=== PATIENT | female | born 1975 | race Caucasian/White ===

== ENCOUNTER → 2017-02-04 | Day surgery (SDC) | payer OTHER ==
[~2017-02-04] VITALS: Ht 160 cm; Wt 119.7 kg
[~2017-02-04] MED LIST: ALBUTEROL SULFATE 2.5 MG/0.5 ML INH NEB SOLN As Ordered ONE; ALBUTEROL SULFATE 2.5 MG/0.5 ML INH NEB SOLN INH ONE; EPIP0.3I2 IJ; FLUT1LOT EX; FLUT1POW2; LIDOCAINE 2% INJ 100 MG/5 ML SDV (FOR ANES.) As Ordered ONE; LR 1,000 ML IV SCH; MIDAZOLAM INJ 2 MG/2 ML VIAL (J2250) As Ordered ONE; ONDANSETRON 4MG/2ML VIAL (J2405) As Ordered ONE; ONDANSETRON 4MG/2ML VIAL (J2405) IV PRN; PERCOCET 5MG/325MG TAB PO PRN; PROA1AER INH; ROCURONIUM BROMIDE 50 MG/5 ML VIAL As Ordered ONE; SILVER NITRATE APPLICATOR EXT ONE; SING10TA32 PO; ZYRT10TA2 PO; fentaNYL 100 MCG/2 ML INJECTION (J3010) As Ordered ONE; fentaNYL 100 MCG/2 ML INJECTION (J3010) IV PRN
[2017-02-04] MEDS: LR 1,000 ML IV SCH ×3 (07:00→08:45)
[2017-02-04 07:04] LABS: CONTROL LINE HCG INT CTR LINE PRESENT
[2017-02-04 11:05] VITALS: BP 119/70
--- NOTE | 2017-02-05 09:42 | RO ---
DATE OF PROCEDURE: 02/04/2017 PREPROCEDURE DIAGNOSES: Benign endometrial hyperplasia with abnormal uterine bleeding. POSTPROCEDURE DIAGNOSES: Benign endometrial hyperplasia with abnormal uterine bleeding. SURGEON: Jodie Tom MD BLANKET CUTTER HAND: None. ANESTHESIA: General endotracheal anesthesia. INDICATION FOR OPERATION: Carly is a 41-year-old female with abnormal uterine bleeding and found to have benign endometrial hyperplasia on an endometrial biopsy performed in the clinic, needing further tissue sampling and treatment with Mirena intrauterine device. MATERIAL FORWARDED FOR LAB FOR EXAMINATION: Endometrial curettings. DESCRIPTION OF FINDINGS: Uterus sounded to 10 cm. On diagnostic hysteroscopy, the uterine cavity appeared normal. There was fluffy, healthy appearing tissue, no discrete lesions noted. INFECTION CLASSIFICATION: II. ESTIMATED BLOOD LOSS: 10 mL. IV FLUIDS: 500 mL of lactated Ringer's. No catheterization was performed for urine output. OPERATION PERFORMED: Diagnostic hysteroscopy with dilatation and curettage and placement of Mirena IUD. DESCRIPTION OF PROCEDURE: After obtaining informed consent, Carly was taken to the operating room where she underwent general endotracheal anesthesia. She was placed in low lithotomy position and the perineum and vagina were prepped and draped in a sterile fashion. Notably, she had a desaturation down to 85, which required giving her albuterol via her endotracheal tube, which corrected her desaturation and then she began saturating normally. She has asthma and had reported that it was well controlled prior to the procedure. Speculum was inserted into the vagina and the anterior segment of the cervix was grasped with a single-toothed tenaculum. Uterus sounded to 10 cm. Cervix was sequentially dilated with Hanks dilators. Hysteroscopic camera was introduced to the fundus of the uterus where the endometrial cavity was noted to be normal in appearance with normal appearing tissue. No discrete lesions. The camera was removed after taking pictures and sharp curette was introduced into the uterus and used to scrape the endometrial lining with good tissue sampling 360 degrees and a moderate amount of tissue was retrieved. At that point, Mirena IUD was then inserted in routine fashion. The strings were cut to approximately 4 cm in length. The strings were tucked up next to the cervix. The tenaculum was removed with continued oozing at the tenaculum insertion sites. The right side had hemostasis achieved with silver nitrate, but the left side tenaculum site continued to bleed so 1 figure of eight suture was placed using #2-0 Vicryl with complete hemostasis noted at that tenaculum site. The bivalve speculum was removed, and the patient was awakened from anesthesia and transferred to the recovery room in good condition. All counts were correct times two at the end of the procedure. SILVIA
== END | disposition home or self-care (01) ==
LOC: M SDC 06:10
PROVIDERS: ATTEND Obstetrics & Gynecology
DX: N92.0 Excessive and frequent menstruation with regular cycle (principal); N85.01 Benign endometrial hyperplasia; Z30.40 Encounter for surveillance of contraceptives, unspecified; Z88.0 Allergy status to penicillin; Z79.899 Other long term (current) drug therapy; J45.909 Unspecified asthma, uncomplicated
CPT/HCPCS: 36415; 58300; 58558; 84703; 85014; 85018; 86850; 86900; 86901; 88305; J2250; J2405; J3010

== ENCOUNTER 2017-10-15 07:30 | Inpatient (IN) | payer OTHER ==
[~2017-10-15] VITALS: Ht 160 cm; Wt 124.7 kg
[~2017-10-15 07:30] MED LIST changes: -ALBUTEROL SULFATE 2.5 MG/0.5 ML INH NEB SOLN As Ordered ONE; -ALBUTEROL SULFATE 2.5 MG/0.5 ML INH NEB SOLN INH ONE; -LIDOCAINE 2% INJ 100 MG/5 ML SDV (FOR ANES.) As Ordered ONE; -LR 1,000 ML IV SCH; -MIDAZOLAM INJ 2 MG/2 ML VIAL (J2250) As Ordered ONE; -ONDANSETRON 4MG/2ML VIAL (J2405) As Ordered ONE; -ONDANSETRON 4MG/2ML VIAL (J2405) IV PRN; -PERCOCET 5MG/325MG TAB PO PRN; -PROA1AER INH; +PROAAER10 INH; -ROCURONIUM BROMIDE 50 MG/5 ML VIAL As Ordered ONE; -SILVER NITRATE APPLICATOR EXT ONE; -fentaNYL 100 MCG/2 ML INJECTION (J3010) As Ordered ONE; -fentaNYL 100 MCG/2 ML INJECTION (J3010) IV PRN
[2017-10-18] MEDS ORDERED: FLUT44IN INH (14:34)
[2017-10-18] MEDS ORDERED: VALT500T PO (14:34)
[2017-10-18] MEDS ORDERED: OLOP1OPD OU (14:34)
[2017-10-30] MEDS ORDERED: CLINDAMYCIN 900 MG in APPROPRIATE DILUENT 1 EA IV ONE (07:15)
[2017-10-30] MEDS ORDERED: GENTAMICIN 190 MG in D5W 50 ML IV ONE (07:15)
[2017-10-30] MEDS ORDERED: LR 1,000 ML IV ONE (07:15)
[2017-10-30 07:36] LABS: MEAN CORPUSCULAR HEMOGLOBIN 28.5 pg (27.0-33.0); MEAN CORPUSCULAR HGB CONC 33.3 g/dl (32.0-36.5); MEAN CORPUSCULAR VOLUME 85.6 fl (80.0-96.0); PLATELET COUNT, AUTOMATED 281 10^3/uL (150-450); RED CELL DISTRIBUTION WIDTH 13.8 % (11.5-14.5); WHITE BLOOD COUNT 8.2 10^3/uL (4.0-10.0)
[2017-10-30 07:50] LABS: CONTROL LINE HCG INT CTR LINE PRESENT
[2017-10-30 07:52] LABS: ANION GAP 5 MEQ/L (8-16); BLOOD UREA NITROGEN 13 MG/DL (7-18); CALCIUM LEVEL 8.7 MG/DL (8.5-10.1); CARBON DIOXIDE LEVEL 31 MEQ/L (21-32); CHLORIDE LEVEL 103 MEQ/L (98-107); CREATININE FOR GFR 0.94 MG/DL (0.55-1.02); GLOMERULAR FILTRATION RATE > 60.0 (>58); GLUCOSE, FASTING 100 MG/DL (70-105); POTASSIUM SERUM 4.7 MEQ/L (3.5-5.1); SODIUM LEVEL 139 MEQ/L (136-145)
[2017-10-30] MEDS ORDERED: ALBUTEROL SULFATE 2.5 MG/0.5 ML INH NEB SOLN As Ordered ONE (08:03)
[2017-10-30] MEDS ORDERED: ALBUTEROL SULFATE 2.5 MG/0.5 ML INH NEB SOLN INH ONE (08:15)
[2017-10-30] MEDS ORDERED: PROPOFOL 200 MG/20 ML VIAL As Ordered ONE ×3 (08:26→12:51)
[2017-10-30] MEDS ORDERED: dexameTHASONE 4 MG/ML 1ML VIAL (J1100) As Ordered ONE (08:26)
[2017-10-30] MEDS ORDERED: fentaNYL 250 MCG/5 ML INJECTION (J3010) As Ordered ONE (08:26)
[2017-10-30] MEDS ORDERED: LIDOCAINE 2% INJ 100 MG/5 ML SDV (FOR ANES.) As Ordered ONE (08:26)
[2017-10-30] MEDS ORDERED: ROCURONIUM BROMIDE 50 MG/5 ML VIAL As Ordered ONE ×2 (08:26→10:01)
[2017-10-30] MEDS ORDERED: MIDAZOLAM INJ 2 MG/2 ML VIAL (J2250) As Ordered ONE (08:28)
[2017-10-30 08:30] LABS: MICROSCOPIC INDICATED? MAN YES (NO)
[2017-10-30] MEDS ORDERED: BUPIVACAINE HCL 0.25% 30 ML VIAL As Ordered ONE (08:31)
[2017-10-30 08:43] LABS: BACTERIA, URINE MOD AMOUNT; HYALINE CAST, URINE NONE SEEN /lpf (0-1); MICROSCOPIC EXAM PERFORMED; SQUAMOUS EPITHELIAL CELL URINE MOD AMOUNT /hpf (SMALL AMT); WBC, URINE 15-20 /hpf (0-3)
[2017-10-30] MEDS ORDERED: PHENYLephrine HCL 500 MCG/5 ML (100MCG/ML) SYRINGE (J2370) As Ordered ONE (09:16)
[2017-10-30] MEDS ORDERED: ePHEDrine SULFATE 25 MG/5 ML(5MG/ML) SYRINGE As Ordered ONE (09:16)
[2017-10-30] MEDS ORDERED: GLYCOPYRROLATE INJ 0.2 MG/ML 2 ML VIAL As Ordered ONE (10:15)
[2017-10-30] MEDS ORDERED: HYDROmorphone HCL 2 MG/ML 1ML VIAL (J1170) As Ordered ONE (10:15)
[2017-10-30] MEDS ORDERED: KETOROLAC 60 MG/2 ML VIAL (J1885) As Ordered ONE (10:15)
[2017-10-30] MEDS ORDERED: NEOSTIGMINE 10 MG/10 ML VIAL (J2710) As Ordered ONE (10:15)
[2017-10-30] MEDS ORDERED: LIDOCAINE W/EPINEPHRINE 1% 20ML VIAL As Ordered ONE (10:59)
[2017-10-30] MEDS ORDERED: ESMOLOL INJ 100MG/10ML VIAL As Ordered ONE (11:25)
[2017-10-30] MEDS ORDERED: METHYLENE BLUE 0.5% (5MG/ML) 10 ML AMP (PROVAYBLUE)(Q9968 PER 1MG) As Ordered ONE (12:05)
[2017-10-30] MEDS ORDERED: PERCOCET 5MG/325MG TAB PO PRN (13:45)
[2017-10-30] MEDS ORDERED: PROMETHAZINE INJ 25 MG/ML VIAL (J2550) IV PRN (13:45)
[2017-10-30] MEDS ORDERED: NALOXONE INJ 0.4 MG/1 ML VIAL (J2310) As Ordered ONE (14:05)
[2017-10-30] MEDS ORDERED: HYDROmorphone HCL 1 MG/ML SYRINGE (J1170) As Ordered ONE (14:08)
[2017-10-30] MEDS ORDERED: ONDANSETRON 4MG/2ML VIAL (J2405) As Ordered ONE (14:08)
[2017-10-30] MEDS: HYDROmorphone HCL 1 MG/ML SYRINGE (J1170) IV PRN ×5 (14:15→14:35)
[2017-10-30] MEDS: PERCOCET 5MG/325MG TAB PO PRN ×3 (14:15→21:51)
[2017-10-30] MEDS ORDERED: fentaNYL 100 MCG/2 ML INJECTION (J3010) IV PRN (14:45)
[2017-10-30] MEDS ORDERED: LR 1,000 ML IV SCH (14:45)
[2017-10-30] MEDS ORDERED: ONDANSETRON 4MG/2ML VIAL (J2405) IV PRN (14:45)
[2017-10-30 15:30] VITALS: BP 146/75
[2017-10-30 16:00] VITALS: BP 132/77
[2017-10-30 17:00] VITALS: BP 122/76
[2017-10-30] MEDS: LR 1,000 ML IV SCH (17:47)
[2017-10-30 18:00] VITALS: BP 135/77
[2017-10-30 19:00] VITALS: BP 167/83
--- NOTE | 2017-10-30 19:59 | IPNPDOC ---
Text Note Date of Service The patient was seen on 10/30/17. NOTE POD 0 Carly Peña is a 41yo on POD 0 s/p uncomplicated LAVH with bilateral salpingectomy and cystoscopy. She has done well this afternoon. Has ambulated, voided spontaneously. She endorses her only pain is in her biceps. She is able to lift her arms, but not without pain. No f/c/n/v/CP/SOB. Vitals wnl, afebrile General: WDWN, obese, resting in bed Abdomen: soft, non-tender, non-distended. Laparoscopic port sites x4 intact with no erythema/induration/drainage with dermabond overlying Extremities: SCDs in place, no pain with palpation of calves. Able to lift arms but not without pain Labs: pre-op H/H 13.8/41.5 Assessment: Carly Peña is a 41yo on POD 0 s/p uncomplicated LAVH with bilateral salpingectomy and cystoscopy. Vitals wnl, exam benign but post-op course significant for bilateral arm pain. This is likely secondary to positioning during surgery with arms "tucked" for laparoscopy. Expect that this will improve over the course of the night and tomorrow. Otherwise meeting milestones. Plan: -routine post-op care -ordered K-Pad for heat to apply to areas of discomfort in her arms -percocet and toradol for pain -continue to encourage ambulation -CPAP tonight for her ANUJA (she has her own from home to use) -advance diet as tolerated -CBC 0600 tomorrow -anticipate likely discharge tomorrow Katerin Martin MD VS,Simona, I+O VSSimona I+O Laboratory Tests 10/30/17 07:18 Red Blood Count 4.85, Mean Corpuscular Volume 85.6, Mean Corpuscular Hemoglobin 28.5, Mean Corpuscular Hemoglobin Concent 33.3, Red Cell Distribution Width 13.8 , Calcium Level 8.7 Vital Signs Date Time Temp Pulse Resp B/P (MAP) Pulse Ox O2 Delivery O2 Flow Rate FiO2 10/30/17 19:00 98.6 101 18 167/83 (111) 95 Nasal Cannula 3.0 I&O- Last 24 Hours up to 6 AM 10/31/17 06:00 Intake Total 3995 ml Output Total 900 ml Balance 3095 ml Jodie Martin MD Oct 30, 2017 19:59
[2017-10-30 20:00] VITALS: BP 123/68
[2017-10-30] MEDS: KETOROLAC 30 MG/ML VIAL (J1885) IV PRN (20:17)
[2017-10-30] MEDS: DOCUSATE SODIUM 100 MG CAP PO SCH (20:17)
[2017-10-31] VITALS: BP 117/61
[2017-10-31] MEDS: KETOROLAC 30 MG/ML VIAL (J1885) IV PRN ×2 (02:27→08:44)
[2017-10-31] MEDS: LR 1,000 ML IV SCH (02:37)
[2017-10-31 04:00] VITALS: BP 117/58
[2017-10-31] MEDS: PERCOCET 5MG/325MG TAB PO PRN (05:16)
[2017-10-31 07:22] LABS: BASO % 0.1 % (0.0-1.0); IMMATURE GRANULOCYTE % 0.6 % (0-0); LYMPH # 1.8 10^3/uL (1.5-4.5); LYMPH % 12.4 % (24.0-44.0); MEAN CORPUSCULAR HEMOGLOBIN 28.5 pg (27.0-33.0); MEAN CORPUSCULAR VOLUME 86.5 fl (80.0-96.0); MONO # 0.9 10^3/uL (0.0-0.8); MONO % 6.2 % (0.0-5.0); NEUTROPHILS # 11.7 10^3/uL (1.8-7.7); NEUTROPHILS % 80.7 % (36.0-66.0); PLATELET COUNT, AUTOMATED 248 10^3/uL (150-450); RED CELL DISTRIBUTION WIDTH 14.3 % (11.5-14.5); WHITE BLOOD COUNT 14.5 10^3/uL (4.0-10.0)
--- NOTE | 2017-10-31 08:16 | IPNPDOC ---
Text Note Date of Service The patient was seen on 10/31/17. NOTE POD 1 Carly Peña is a 41yo on POD 1 s/p uncomplicated LAVH with bilateral salpingectomy and cystoscopy. She did well overnight with no acute events. She has been ambulating, voiding spontaneously and tolerating regular diet without issues. She still has some pain in her upper arms, but much improved from yesterday afternoon. Minimal abdominal pain. No f/c/n/v/CP/SOB. Vitals wnl, afebrile General: WDWN, resting in bed Cardiac: S1S2 present, no murmur Lungs: CTAB Abdomen: soft, obese, appropriately tender to palpation with no rebound/guarding , non-distended. Laparoscopic port sites x4 intact with no erythema/induration/ drainage with dermabond overlying Extremities: No pain with palpation of calves. Able to lift arms more comfortably today Labs: pre-op H/H 13.8/41.5 post-op H/H 11.8/35.8 Assessment: Carly Peña is a 41yo on POD 1 s/p uncomplicated LAVH with bilateral salpingectomy and cystoscopy. Vitals wnl, exam benign. Hemodynamically stable with no evidence of infection. Appropriate drop in H/H. Plan: -discharge to home today -percocet and motrin for pain -continue to encourage ambulation -regular diet -has home meds given: colace, motrin, percocet -has 2 week follow-up with me for post-op visit Katerin Martin MD VS,Simona I+O VS, Simona I+O Laboratory Tests 10/31/17 07:03 Red Blood Count 4.14, Mean Corpuscular Volume 86.5, Mean Corpuscular Hemoglobin 28.5, Mean Corpuscular Hemoglobin Concent 33.0, Red Cell Distribution Width 14.3 , Neutrophils (%) (Auto) 80.7 H, Lymphocytes (%) (Auto) 12.4 L, Monocytes (%) ( Auto) 6.2 H, Eosinophils (%) (Auto) 0.0, Basophils (%) (Auto) 0.1, Neutrophils # (Auto) 11.7 H, Lymphocytes # (Auto) 1.8, Monocytes # (Auto) 0.9 H, Eosinophils # (Auto) 0.0, Basophils # (Auto) 0.0 Vital Signs Date Time Temp Pulse Resp B/P (MAP) Pulse Ox O2 Delivery O2 Flow Rate FiO2 10/31/17 05:46 18 10/31/17 04:00 97.4 62 117/58 (77) 99 Nasal Cannula 3.0 I&O- Last 24 Hours up to 6 AM 11/01/17 06:00 Intake Total 120 ml Output Total 200 ml Balance -80 ml Jodie Martin MD Oct 31, 2017 08:16
--- NOTE | 2017-10-31 08:23 | DS.PDOC ---
Discharge Summary General Date of Admission Oct 30, 2017 at 06:58 Date of Discharge Oct 31, 2017 Attending Physician: Jodie Martin MD Discharge Summary PROCEDURES PERFORMED DURING STAY: laparoscopic assisted vaginal hysterectomy with bilateral salpingectomy and cystoscopy ADMITTING DIAGNOSES: 1. Abnormal uterine bleeding related to benign endometrial hyperplasia 2. Obesity 3. Obstructive sleep apnea 4. Asthma DISCHARGE DIAGNOSES: 1. Abnormal uterine bleeding related to benign endometrial hyperplasia s/p hysterectomy 2. Obesity 3. Obstructive sleep apnea 4. Asthma COMPLICATIONS/CHIEF COMPLAINT: Abnormal uterine bleeding with benign endometrial Hyperplasia. HISTORY OF PRESENT ILLNESS/HOSPITAL COURSE: Carly Peña is a 41yo who underwent uncomplicated LAVH on 10/30/17 with bilateral salpingectomy and cystoscopy to treat her benign endometrial hyperplasia that caused abnormal uterine bleeding. She had a benign post- operative course. At time of discharge on post-op day 1, vitals were normal and exam benign. She was hemodynamically stable with no evidence of infection. DISCHARGE MEDICATIONS: percocet, motrin, colace ALLERGIES: Please see below. PHYSICAL EXAMINATION ON DISCHARGE: Vitals wnl, afebrile General: WDWN, resting in bed Cardiac: S1S2 present, no murmur Lungs: CTAB Abdomen: soft, obese, appropriately tender to palpation with no rebound/guarding , non-distended. Laparoscopic port sites x4 intact with no erythema/induration/ drainage with dermabond overlying Extremities: No pain with palpation of calves. Able to lift arms more comfortably today LABORATORY DATA: pre-op H/H 13.8/41.5 post-op H/H 11.8/35.8 ACTIVITY: As tolerated. Vaginal rest for 6 full weeks. No heavy lifting greater than a full milk jug. DIET: regular DISCHARGE PLAN: discharge to home today DISPOSITION: home DISCHARGE INSTRUCTIONS: -discharge to home today -percocet and motrin for pain. colace for stool softener. -has 2 week follow-up with me for post-op visit -return precautions discussed for signs/symptoms of infection such as fevers/ chills, erythema/drainage of incisions, foul smelling vaginal discharge, increasing abdominal pain. Also heavy vaginal bleeding. She is encouraged to call our clinic's triage nurse if she has any concerns while recovering. DISCHARGE CONDITION: Stable TIME SPENT ON DISCHARGE: Greater than 30 minutes. Jodie Martin MD Vital Signs/I&Os Vital Signs Date Time Temp Pulse Resp B/P (MAP) Pulse Ox O2 Delivery O2 Flow Rate FiO2 10/31/17 05:46 18 10/31/17 04:00 97.4 62 117/58 (77) 99 Nasal Cannula 3.0 I&O- Last 24 Hours up to 6 AM 11/01/17 06:00 Intake Total 120 ml Output Total 200 ml Balance -80 ml Laboratory Data Labs 24H Laboratory Tests 2 10/31/17 07:03: Immature Granulocyte % (Auto) 0.6H, White Blood Count 14.5H, Red Blood Count 4.14, Hemoglobin 11.8#L, Hematocrit 35.8L, Mean Corpuscular Volume 86.5, Mean Corpuscular Hemoglobin 28.5, Mean Corpuscular Hemoglobin Concent 33.0, Red Cell Distribution Width 14.3, Platelet Count 248, Neutrophils (%) (Auto) 80.7H, Lymphocytes (%) (Auto) 12.4L, Monocytes (%) (Auto) 6.2H, Eosinophils (%) (Auto) 0.0, Basophils (%) (Auto) 0.1, Neutrophils # (Auto) 11.7H, Lymphocytes # (Auto) 1.8, Monocytes # (Auto) 0.9H, Eosinophils # (Auto) 0.0, Basophils # (Auto) 0.0, Immature Granulocyte # (Auto) 0.1H, Nucleated Red Blood Cells % (auto) 0.0 CBC/BMP Laboratory Tests 10/31/17 07:03 Red Blood Count 4.14, Mean Corpuscular Volume 86.5, Mean Corpuscular Hemoglobin 28.5, Mean Corpuscular Hemoglobin Concent 33.0, Red Cell Distribution Width 14.3 , Neutrophils (%) (Auto) 80.7 H, Lymphocytes (%) (Auto) 12.4 L, Monocytes (%) ( Auto) 6.2 H, Eosinophils (%) (Auto) 0.0, Basophils (%) (Auto) 0.1, Neutrophils # (Auto) 11.7 H, Lymphocytes # (Auto) 1.8, Monocytes # (Auto) 0.9 H, Eosinophils # (Auto) 0.0, Basophils # (Auto) 0.0 Microbiology Microbiology 10/30/17 Urine Culture - Final, Complete Discharge Medications Scheduled (Epipen 2-Miky) 0.3 Mg/0.3 Ml Inj, 0.3 MG IJ PRN, (Reported) Cetirizine HCl (Zyrtec Allergy) 10 Mg Tab, 10 MG PO DAILY, (Reported) Fluticasone Propionate (Flovent Hfa) 44 Mcg/Act Aer, 2 MCG INH DAILY, (Reported) Montelukast Sodium (Singulair) 10 Mg Tab, 10 MG PO QHS, (Reported) Olopatadine Hydrochloride (Patanol) 100 Drop/5 Ml Soln, 1 DROP OU PRN, (Reported ) ONE DROP Valacyclovir Hydrochloride (Valtrex) 500 Mg Tab, 500 MG PO DAILY, (Reported) Scheduled PRN Albuterol Sulfate (Proair Hfa) 108 Mcg/Act Aer, 2 PUFF INH PRN PRN for WHEEZING, (Reported) Fluticasone Propionate (Fluticasone Propionate) 1 Pow Pow, 1 PUFF NA PRN PRN for CONGESTION, (Reported) Allergies Coded Allergies: Animal Dander (Verified Allergy, Severe, THROAT SWELLING, 10/30/17) Coconut (Verified Allergy, Severe, ANAPHYLAXIS, 10/30/17) ENVIROMENTAL (Unverified Allergy, Severe, HAY FEVER - throat swelling, ) Peanut (Verified Allergy, Severe, PEANUTS, PEANUT BUTTER - ANAPHYLAXIS, ) Peanut-containing Drug Products (Verified Allergy, Severe, ANAPHYLAXIS, ) Penicillins (Unverified Allergy, Intermediate, hives fever, 10/30/17) Jodie Martin MD Oct 31, 2017 08:23
[2017-10-31 08:44] VITALS: BP 134/64
[2017-10-31] MEDS: DOCUSATE SODIUM 100 MG CAP PO SCH (08:44)
--- NOTE | 2017-10-31 09:20 | RO ---
DATE OF PROCEDURE: 10/30/2017 PREOPERATIVE DIAGNOSES: Abnormal uterine bleeding related to benign endometrial hyperplasia. Morbid obesity. Obstructive sleep apnea. Asthma. Prior bilateral tubal ligation. POSTOPERATIVE DIAGNOSES: Abnormal uterine bleeding related to benign endometrial hyperplasia. Morbid obesity. Obstructive sleep apnea. Asthma. Prior bilateral tubal ligation. OPERATION PERFORMED: Laparoscopic assisted vaginal hysterectomy. Bilateral salpingectomy. Cystoscopy. SURGEON: Dr. Jodie Martin MANAGER PHILOSOPHY: Dr. Mert Romano ANESTHESIA: [facility] CLINICAL SERVICE: SUPERVISOR TUNNEL HEADING. MATERIALS FORWARDED TO LAB FOR EXAMINATION: Uterus with cervix and bilateral fallopian tubes. DESCRIPTION OF FINDINGS: Laparoscopic findings included normal appearing uterus and ovaries. The bilateral fallopian tubes had evidence of prior ligation. She had extensive intra-abdominal adipose tissue which increased the complexity of the procedure. At the end of the procedure, there was hemostasis along the vaginal cuff, noted both vaginally and laparoscopically, and postoperative cystoscopy revealed bilateral ureteral jets and intact bladder dome. INFECTION CLASSIFICATION: 2. ESTIMATED BLOOD LOSS: 200 mL. INTRAVENOUS FLUIDS: 2500 mL of lactated Ringer. URINE OUTPUT: 700 mL of clear yellow urine that turned green after administration of methylene blue for cystoscopy. INDICATION FOR OPERATION: Carly Peña is a 40-year-old, (G) 4, para (P) 2-1-1-3. She was first seen by [facility] in October 2016 for irregular menstrual periods with abnormal uterine bleeding/heavy menstrual bleeding. She had a transvaginal ultrasound at that time which showed a thickened stripe of 1.87 cm and she had an endometrial biopsy which showed hyperplasia. She underwent a dilation and curettage (D and C) and the endometrial curettings showed diffuse simple hyperplasia with a small focus of complex hyperplasia, but no atypia and no malignancy. She had elected for Mirena intrauterine device (IUD) placement. She continued to have heavy bleeding despite Mirena placement and she desired a hysterectomy when she returned to [facility] in September 2017. Notably after her D and C procedure, she had an episode of oxygen desaturation and she was referred to pulmonology for suspected obstructive sleep apnea which was confirmed and prior to this current hysterectomy she was referred to pulmonology for preoperative clearance which they gave with the only recommendation being to use her CPAP machine when she was inpatient in the hospital after her surgery. DESCRIPTION OF OPERATION: Carly Peña was taken to the operating room. Bilateral sequential compression devices (SCDS) were placed. General endotracheal anesthesia was utilized. She was prepped and draped in normal sterile fashion in a low lithotomy position. She received IV gentamicin and clindamycin because she had a penicillin allergy. A time out was performed to confirm patient name, date of , procedure, and indications. Surgical team, nursing staff and anesthesia were all in agreement. Zavala catheter was placed. Bivalved speculum was placed in the vagina and the anterior lip of the cervix was grasped with a single tooth tenaculum. A iHireHelp uterine manipulator was introduced. Single tooth tenaculum was removed and bivalved speculum was removed from the vagina. Gloves changed. A 5 mm incision was made with a scalpel into the infraumbilical fold. Subcutaneous tissue was dissected down with a Christie clamp after injecting with 0.25% Marcaine. Lower abdominal wall was manually grabbed and lifted up with aid of towel clamps. An Optiview trocar was placed at a 90 degree angle and the laparoscope was advanced through the port and intra-abdominal placement was confirmed. Continuous flow of carbon dioxide begun to establish a pneumoperitoneum at 15 mmHg pressure. At that point, we placed our lateral ports under direct visualization. 5 mm incisions were made for each of the lateral ports. Pelvic and abdominal survey were conducted beginning at anterior cul-de-sac and anterior portion of the uterus which were normal in appearance. Left and right fallopian tubes were noted to be interrupted from previous ligation. Round ligaments, broad ligaments and ovaries were observed with normal appearance. Posterior cul-de-sac was also observed to be normal. Survey of the upper abdomen was unrevealing given the extensive amount of omental adipose tissue present. Fallopian tubes were excised using the LigaSure and removed through lateral ports. The right broad ligament was transected using the LigaSure device. The utero-ovarian ligament was transected using the LigaSure. The anterior leaf of the broad ligament was opened and we attempted to skeletonize the uterine artery. This was done with the LigaSure down to the level of the internal cervical os. At that time, the right side portion of the bladder flap was made using the LigaSure. Then, the same procedure was done on the left side. Hemostasis was noted along all pedicles in the pelvis and laparoscopic instruments were removed from the abdomen. The pneumoperitoneum was released, however, all trocars were kept in place. The patient was then placed in high lithotomy position and a short weighted speculum was placed in the vagina with good visualization of the cervix. The cervix was grasped with two Francisco thyroid clamps. The cervix was injected circumferentially with 1% lidocaine with epinephrine. Bovie cautery was used to circumscribe the cervix. The posterior cervix was grasped and entered sharply with curved Kaminski scissors. Entry was noted to be into the peritoneum. At this time, the posterior peritoneum and vaginal cuff were tagged with #0 Vicryl. Uterosacral ligaments were incorporated into curved Juliet clamps, transected and suture ligated using #0 Vicryl and they were tagged. Weighted speculum was replaced in the posterior cul-de-sac and the cardinal ligaments were clamped on both sides, transected and suture ligated with #0 Vicryl suture. Entry was made sharply into the anterior cul-de-sac using Metzenbaum scissors. The bladder was retracted away using a right angled retractor. Uterine arteries and remaining broad ligaments were serially clamped with Juliet clamps, transected and suture ligated with #0 Vicryl suture. Hemostasis of the uterine arteries was noted bilaterally. Specimen containing cervix and uterus was then delivered through the vagina and sent off the field. The vaginal cuff was closed using #0 Vicryl running locking sutures. The vagina was noted to be hemostatic at that point. All instruments were removed from the vagina. We then reestablished pneumoperitoneum, reevaluated the abdomen and pelvis and noted there was slight oozing along the right pedicle line. The LigaSure device was again used to gain complete hemostasis. Jessica was applied and we continued to observe without any further bleeding seen. We then completed cystoscopy in the usual fashion. Methylene blue had been given beforehand by the anesthesiologist and bilateral ureteral jets were noted. There was a bubble present at the bladder dome and there were no sutures noted and no defects in the bladder. The cystoscope was removed. We then observed one final time for hemostasis in the pelvis laparoscopically. At that time, the pneumoperitoneum was completely released after the lateral ports were removed under direct visualization followed by the umbilical port site. Not mentioned previously, a second 5mm lateral port on the right side was placed, just given some technical difficulty with the case given the patient's body mass index (BMI) and some difficulty with visualization in the pelvis. She therefore had a total of three lateral ports along with her umbilical port for a total of four laparoscopic port sites. All of these port sites were reapproximated with #4-0 Monocryl suture and Dermabond overlying. Hemostasis was noted for all incisions. The patient was taken out of the high lithotomy position. All counts were correct times two. She was awakened from general anesthesia with no acute events. She was taken to recovery room in stable condition. SILVIA
[2017-10-31] MEDS ORDERED: COLA100C5 PO (11:08)
[2017-10-31] MEDS ORDERED: MOTR200T44 PO (11:08)
[2017-10-31] MEDS ORDERED: OXYC1TAB23 PO (11:08)
== END 2017-10-31 11:35 | disposition home or self-care (01) | DRG 742 ==
LOC: M OR 10-30 06:58 → M PED 10-30 15:56
PROVIDERS: ADMIT Obstetrics & Gynecology; ATTEND Obstetrics & Gynecology
PROC: 0UTC8ZZ Resection of Cervix, Via Natural or Artificial Opening Endoscopic (ICD-10-PCS; 2017-10-30)
PROC: 0UB78ZZ Excision of Bilateral Fallopian Tubes, Via Natural or Artificial Opening Endoscopic (ICD-10-PCS; 2017-10-30)
PROC: 0UT9FZZ Resection of Uterus, Via Natural or Artificial Opening With Percutaneous Endoscopic Assistance (ICD-10-PCS; principal; 2017-10-30 08:20)
DX: N93.9 Abnormal uterine and vaginal bleeding, unspecified (principal); N85.00 Endometrial hyperplasia, unspecified; E66.01 Morbid (severe) obesity due to excess calories; G47.33 Obstructive sleep apnea (adult) (pediatric); J45.909 Unspecified asthma, uncomplicated; Z79.899 Other long term (current) drug therapy; Z88.0 Allergy status to penicillin; Z91.018 Allergy to other foods; Z91.010 Allergy to peanuts; Z98.51 Tubal ligation status; Z99.89 Dependence on other enabling machines and devices; Z68.42 Body mass index [BMI] 45.0-49.9, adult

== ENCOUNTER → 2017-10-22 | Outpatient (CLI) | payer OTHER ==
[~2017-10-22] MED LIST changes: +FLUT44IN INH; +OLOP1OPD OU; +VALT500T PO
--- NOTE | 2017-10-22 21:56 | ECGEPIP ---
Stationary ECG Study [facility] Test Date: 2017-10-22 Pat Name: DENISSE QUINTANILLA Department: Room: - Gender: F Monitoring Coordinator: [facility] : 1975 Requested By: Jeromy Anton Order Number: [id number] Reading MD: Reid Johnson Measurements Intervals [place] Rate: 62 P: -8 NV: 178 QRS: 57 QRSD: 100 T: 19 QT: 407 QTc: 414 Interpretive Statements Normal sinus rhythm Delayed anterior R wave progression Comparison tracing not on file Electronically Signed On 10-22-2017 21:56:25 EST by Reid Johnson
== END ==
LOC: M EKG 10:59
PROVIDERS: ATTEND Internal Medicine
DX: J45.909 Unspecified asthma, uncomplicated (principal); G47.30 Sleep apnea, unspecified

== ENCOUNTER 2019-01-23 12:04 | Emergency (ER) | payer OTHER ==
[~2019-01-23] VITALS: Ht 160 cm; Wt 123.6 kg
[~2019-01-23 12:04] MED LIST changes: +COLA100C5 PO; +MOTR200T44 PO; +OXYC1TAB23 PO; +ZYRT10CA5 PO; -ZYRT10TA2 PO
[2019-01-23 13:01] LABS: BASO # 0.1 10^3/uL (0.0-0.2); BASO % 1.1 % (0.0-1.0); EOS # 0.2 10^3/uL (0.0-0.50); EOS % 3.2 % (0.0-3.0); HEMATOCRIT 40.4 % (36.0-47.0); HEMOGLOBIN 13.5 g/dl (12.0-15.5); LYMPH # 2.5 10^3/uL (1.5-4.5); LYMPH % 33.8 % (24.0-44.0); MEAN CORPUSCULAR HEMOGLOBIN 28.1 pg (27.0-33.0); MEAN CORPUSCULAR HGB CONC 33.4 g/dl (32.0-36.5); MEAN CORPUSCULAR VOLUME 84.2 fl (80.0-96.0); MONO # 0.4 10^3/uL (0.0-0.8); MONO % 5.7 % (0.0-5.0); NEUTROPHILS # 4.1 10^3/uL (1.8-7.7); NEUTROPHILS % 55.9 % (36.0-66.0); PLATELET COUNT, AUTOMATED 255 10^3/uL (150-450); WHITE BLOOD COUNT 7.4 10^3/uL (4.0-10.0)
[2019-01-23 13:48] LABS: BLOOD UREA NITROGEN 14 MG/DL (7-18); CALCIUM LEVEL 8.4 MG/DL (8.5-10.1); CARBON DIOXIDE LEVEL 26 MEQ/L (21-32); CHLORIDE LEVEL 105 MEQ/L (98-107); CPK CREATINE PHOSPHOKINASE 286 U/L (26-192); CREATININE FOR GFR 0.87 MG/DL (0.55-1.30); GLOMERULAR FILTRATION RATE > 60.0 (>58); GLUCOSE, FASTING 89 MG/DL (70-100); MB/CK RELATIVE INDEX 0.73 (< OR =4); POTASSIUM SERUM 4.2 MEQ/L (3.5-5.1); SODIUM LEVEL 137 MEQ/L (136-145); TROPONIN I < 0.02 NG/ML (< 0.10)
[2019-01-23] MEDS ORDERED: ISOVUE-370 76% 100ML VIAL (Q9967) As Ordered ONE (13:50)
--- NOTE | 2019-01-23 14:46 | REP ---
CT of the chest with IV contrast, CT pulmonary angiography protocol: There are no comparison studies. There are no emboli in the pulmonary trunk or central pulmonary arteries. There are no emboli in the pulmonary lobe or segment branches. There are no infiltrates or pleural effusions. There are no masses or nodules. The thoracic aorta is unremarkable. Cardiac size is slightly enlarged. There is no pericardial effusion. There is no adenopathy. The visualized upper abdominal contents are unremarkable. Impression: There are no pulmonary emboli. Otherwise, negative CT study of the chest. Electronically Signed by Mert Cmapa MD 01/23/2019 02:37 P
[2019-01-23 15:15] VITALS: BP 119/76
--- NOTE | 2019-01-23 17:40 | ECGEPIP ---
Stationary ECG Study [facility] Test Date: 2019-01-23 Pat Name: DENISSE QUINTANILLA Department: Room: - Gender: F Modeling Director: [facility] : 1975 Requested By: DAI Hilton Order Number: [id number] Reading MD: Sriram Rodriguez Measurements Intervals [place] Rate: 59 P: -9 DC: 185 QRS: 51 QRSD: 107 T: 27 QT: 427 QTc: 426 Interpretive Statements SINUS BRADYCARDIA WITH SINUS ARRHYTHMIA SIMILAR TO 10/22/17 Electronically Signed On 01-23-2019 17:40:07 EST by Sriram Rodriguez
== END 2019-01-23 15:25 | disposition home or self-care (01) ==
LOC: M ED 12:04
DX: R07.89 Other chest pain (principal); R00.1 Bradycardia, unspecified; R06.02 Shortness of breath; J45.909 Unspecified asthma, uncomplicated; G47.33 Obstructive sleep apnea (adult) (pediatric); E66.01 Morbid (severe) obesity due to excess calories; Z88.0 Allergy status to penicillin; Z91.010 Allergy to peanuts; Z91.018 Allergy to other foods; Z79.899 Other long term (current) drug therapy
CPT/HCPCS: 71275; 80048; 82550; 82553; 84484; 85025; 93005; 93041; 94760; 99285; Q9967

== ENCOUNTER → 2019-02-02 | Outpatient (CLI) | payer OTHER ==
--- NOTE | 2019-02-02 12:05 | REPMRS ---
Patient History The patient states she had a clinical breast exam in June 2018. Family history of breast cancer at age 70 in maternal grandmother, breast cancer at age 50 in maternal aunt, breast cancer at age 50 in maternal aunt, prostate cancer at age 70 in maternal grandfather. Digital Mammo Screening Bilat: February 02, 2019 - Exam #: [id number] Bilateral CC and MLO view(s) were taken. Technologist: Alissa Raymond, Technologist Prior study comparison: September 24, 2016, digital mammo diagnostic bilateral performed at [facility]. FINDINGS: There are scattered fibroglandular densities. There has been no change in the appearance of the mammogram from the prior studies. There is a mild amount of residual fibroglandular tissue which is fairly symmetric. There is no interval development of dominant mass, architectural distortion, or clustered microcalcification suggestive of malignancy. Assessment: BI-RADS/ACR category 1 mammogram. Negative Mammogram. Recommendation Routine screening mammogram in 1 year (for women over age 40). This mammogram was interpreted with the aid of an FDA-approved computer-aided dectection system. Electronically Signed By: Mert Shell MD 02/02/19 [id number]
== END ==
LOC: M RAD 09:05
PROVIDERS: ATTEND Family Medicine
DX: Z12.31 Encounter for screening mammogram for malignant neoplasm of breast (principal); Z80.3 Family history of malignant neoplasm of breast

== ENCOUNTER → 2019-05-05 | Outpatient (CLI) | payer OTHER ==
[~2019-05-05] MED LIST changes: -OLOP1OPD OU; +PATA2.5S OU
--- NOTE | 2019-05-05 12:37 | REP ---
LEFT FOOT, FOUR VIEWS: HISTORY: Injury. There is no acute fracture or dislocation. The joint spaces are normal in appearance. IMPRESSION: There is no acute fracture or dislocation. Electronically Signed by Bradley Zepeda MD 05/05/2019 01:21 P
== END ==
LOC: M LRY 11:53
PROVIDERS: ATTEND Nurse Practitioner Family
DX: S99.922D Unspecified injury of left foot, subsequent encounter (principal); X58.XXXD Exposure to other specified factors, subsequent encounter; Y92.9 Unspecified place or not applicable
CPT/HCPCS: 73630; G0463